=== PATIENT | male | born 1935 | race Caucasian/White ===

== ENCOUNTER 2016-10-03 17:29 | Inpatient (IN) | payer OTHER ==
[~2016-10-03] VITALS: Ht 172.7 cm; Wt 72.1 kg
[~2016-10-03 17:29] MED LIST: ASPIR 8181 M1 PO; ATORVASTATIN CA80 MG PO; Aspirin E.C. PO; CALCITRIOL0.25 MCG PO; CARVEDILOL12.5 MG PO; CARVEDILOL25 MG PO; CARVEDILOL6.25 MG PO; CEFTIN500 MG PO; FUROSEMIDE40 MG PO; HUMALOG100 UNIT/1 SC; IPRATR-ALBUTEROL3 ML IH; LANTUS 10100 UNITS/ SC; LANTUS 3 M100 UNITS1 SC; LEVEMIR FL100 UNITS/ SC; LEVOFLOXACIN750 MG PO; LEVOTHYROXINE25 MCG PO; NOVOLIN N100 UNITS/ SC; NOVOLOG PE100 UNITS/ SC; OMEPRAZOLE20 M2 PO; OMEPRAZOLE20 MG; PANTOPRAZOLE SO40 MG PO; ROPINIROLE HCL0.5 MG PO; ST. JOSEPH ASPI81 MG PO; TRADJENTA5 MG PO; VITAMIN D2000 UNIT PO; VITAMIN D22000 UNIT PO
[2016-10-03 17:52] LABS: BASE EXCESS -8.9 mEq/L (-3 to +3); BICARBONATE 15.5 mEq/L (22-26); CARBOXY HGB 1.9 % (0-5); PCO2 28 mm Hg (35-45); PO2 403 mm Hg (80-100); pH 7.35 (7.35-7.45)
[2016-10-03 17:53] LABS: COMMENTS - BLOOD GASES A+C+; DEVICE NRBM; FI02 100 %; O2 FLOW 20 L/MIN; SITE LR; TOTAL RESP RATE 24 resp/min
[2016-10-03 17:54] LABS: CREATININE 2.6 mg/dL (0.6-1.3); POTASSIUM 3.1 mEq/L (3.7-5.4)
[2016-10-03 17:55] LABS: HEMATOCRIT 34.9 % (38.0-50.0); MCH 26.9 PG (29.0-34.0); MCHC 32.1 G/DL (30.0-36.0); MCV 83.7 FL (86-99); MEAN PLAT.VOLUME 11.6 uM^3 (9.0-12.4); NRBC (%) 0.3 /100 WBC (0-0); PLATELET COUNT 120 K/uL (156-360); RBC DIS.WIDTH-SD 45.7 % (39-53); RED BLOOD COUNT 4.17 M/uL (4.00-5.50); WHITE BLOOD COUNT 9.6 K/uL (4.1-10.2)
[2016-10-03 18:06] LABS: AMYLASE 149 IU/L (1-118); CHLORIDE 101 mEq/L (99-109); POTASSIUM 3.2 mEq/L (3.7-5.4); SODIUM 139 mEq/L (136-147)
[2016-10-03 18:07] LABS: INTER. NORMALIZED RATIO 1.2; PROTHROMBIN TIME 12.1 (9.2-11.2); PTT 32.9 (25-32)
[2016-10-03 18:08] LABS: GLUCOSE 338 mg/dL (70-99)
[2016-10-03 18:09] LABS: ANION GAP 18 MEQ/L (2-14)
[2016-10-03 18:11] LABS: SERUM ETHYL ALCOHOL < 10 mg/dL
[2016-10-03 18:12] LABS: UREA NITROGEN (BUN) 44 mg/dL (9-23)
[2016-10-03 18:15] LABS: LIPASE 65 U/L (1.0-51.0)
[2016-10-03 18:17] LABS: TROP-I INTERPRETATION NEGATIVE; TROPONIN-I 0.27 ng/mL (0.0-0.30)
[2016-10-03 18:18] LABS: GFR ESTIMATE (CALCULATED) 21 mL/min/
[2016-10-03 18:43] LABS: ABS NEUTROPHIL COUNT 6.8; ANISOCYTOSIS 2+; ATYPICAL LYMPHOCYTE 6.4 %; BAND NEUTROPHILS 4.5 % (0-8.0); BURR CELLS 2+; EOSINOPHIL ABS CT 0; INSTRUMENT ABS NEUTROPHIL CT 4.7 K/uL; LYMPHOCYTES 18.2 % (15.0-45.0); MACROCYTES 1+; METAMYELOCYTES 3.6 %; MICROCYTOSIS 2+; MYELOCYTES 0.9 %; NUCLEATED RBC'S 1.8; OVALOCYTES 1+; POIKILOCYTOSIS 3+; SCHISTOCYTES 1+; SEG.NEUTROPHILS 66.4 % (46.0-76.0); SMUDGE CELLS 12.7
[2016-10-03 19:41] LABS: BICARBONATE 19.6 mEq/L (22-26); CARBOXY HGB 1.8 % (0-5); DEVICE 980; METHEMOGLOBIN 1.2 % (0-1.5); PCO2 38 mm Hg (35-45); PO2 125 mm Hg (80-100); SITE LR; pH 7.32 (7.35-7.45)
[2016-10-03 19:42] LABS: FI02 75 %; MECHANICAL RATE 20 resp/min; MODE AC; PEEP 5 CM/H20; TIDAL VOLUME 450 ML; TOTAL RESP RATE 20 resp/min
[2016-10-03 19:59] LABS: MAGNESIUM 2.4 mg/dL (1.3-2.7)
[2016-10-03 21:50] VITALS: BP 166/58
[2016-10-03 22:30] VITALS: BP 168/94
[2016-10-03 23:00] VITALS: BP 178/75
[2016-10-04] VITALS (10 sets, daily range): BP systolic 84–150; BP diastolic 38–105
[2016-10-04 00:11] LABS: METH RESISTANT S AUREUS PCR NEGATIVE (NEGATIVE)
[2016-10-04 00:17] LABS: PROBE CHECK PASS; SPECIMEN PROCESSING CONTROL PASS
[2016-10-04 00:18] LABS: CHLORIDE 109 mEq/L (99-109)
[2016-10-04 00:19] LABS: SODIUM 142 mEq/L (136-147)
[2016-10-04 00:21] LABS: GLUCOSE 195 mg/dL (70-99)
[2016-10-04 00:22] LABS: ANION GAP 17 MEQ/L (2-14); POTASSIUM 4.2 mEq/L (3.7-5.4)
[2016-10-04 00:23] LABS: TOTAL BILIRUBIN 1.4 mg/dL (0.0-1.0)
[2016-10-04 00:24] LABS: ALKALINE PHOSPHATASE 174 IU/L (3-129); GFR ESTIMATE (CALCULATED) 21 mL/min/
[2016-10-04 00:25] LABS: TROP-I INTERPRETATION POSITIVE; TROPONIN-I 9.09 ng/mL (0.0-0.30)
[2016-10-04 00:26] LABS: UREA NITROGEN (BUN) 47 mg/dL (9-23)
[2016-10-04 00:33] LABS: HEMATOCRIT 38.3 % (38.0-50.0); MCH 26.7 PG (29.0-34.0); MCHC 32.1 G/DL (30.0-36.0); MCV 83.1 FL (86-99); MEAN PLAT.VOLUME 11.6 uM^3 (9.0-12.4); RBC DIS.WIDTH-CV 15.3 % (11.8-14.6); RBC DIS.WIDTH-SD 46.5 % (39-53); RED BLOOD COUNT 4.61 M/uL (4.00-5.50)
[2016-10-04 00:36] LABS: PLATELET COUNT 172 K/uL (156-360); WHITE BLOOD COUNT 23.8 K/uL (4.1-10.2)
[2016-10-04 02:01] LABS: BASE EXCESS -5.4 mEq/L (-3 to +3); BICARBONATE 18.9 mEq/L (22-26); METHEMOGLOBIN 1.5 % (0-1.5); pH 7.38 (7.35-7.45)
[2016-10-04 02:12] LABS: PCO2 32 mm Hg (35-45); PO2 168 mm Hg (80-100)
[2016-10-04 02:13] LABS: COMMENTS - BLOOD GASES C+; DEVICE VENT; FI02 60 %; INSPIRATION TIME 0.8 seconds; MECHANICAL RATE 20 resp/min; MODE A/C VC+; PEEP 5 CM/H20; SITE RR ALINE; TIDAL VOLUME 450 ML; TOTAL RESP RATE 24 resp/min
[2016-10-04 04:24] LABS: HDL CHOLESTEROL 29 MG/DL (Desirable>=40); LDL CHOLESTEROL 41 mg/dL (Desirable<100); NON-HDL CHOLESTEROL 61 mg/dL (Desirable<160); SAMPLE HEMOLYSIS CHECK 0; SAMPLE ICTERIC CHECK 0; SAMPLE LIPEMIA CHECK 0; TOTAL CHOLESTEROL 90 mg/dL (Desirable<200); TRIGLYCERIDES 98 MG/DL (Normal: <150)
[2016-10-04 04:24] LABS: ADD MIUA? YES; BILIRUBIN NEGATIVE; BLOOD LARGE; COLOR YELLOW ((YELLOW)); GLUCOSE (STRIP) 150; KETONES NEGATIVE; LEUKOCYTES NEGATIVE; NITRITE NEGATIVE; PROTEIN (STRIP) >=500; SPECIFIC GRAVITY 1.009 (1.000-1.030); UROBILINOGEN 0.2 MG/DL (0.2-1.0)
[2016-10-04 04:42] LABS: AMPHETAMINES QUANT VALUE 0 NG/ML; BARBITUATES QUANT VALUE 0 NG/ML; BENZODIAZEPINES, URINE SCREEN POSITIVE (200 ng/mL); MARIJUANA QUANT VALUE 0 NG/ML; OPIATES QUANTITATIVE VALUE 0 NG/ML; PHENCYCLIDINE QUANT VALUE 0 NG/ML
[2016-10-04 04:51] LABS: BACTERIA RARE /HPF; CASTS NONE SEEN /LPF; CRYSTALS NONE SEEN; EPITHELIAL CELLS RARE /HPF; MUCUS NONE SEEN /LPF; RED BLOOD CELLS TNTC /HPF (0-5); UCUL ADDED? NO; WHITE BLOOD CELLS 0-5 /HPF (0-5)
[2016-10-04 05:29] LABS: BASE EXCESS -6.4 mEq/L (-3 to +3); BICARBONATE 17.9 mEq/L (22-26); CARBOXY HGB 1.9 % (0-5); COMMENTS - BLOOD GASES C+; DEVICE VENT; FI02 60 %; INSPIRATION TIME 0.8 seconds; MECHANICAL RATE 20 resp/min; METHEMOGLOBIN 1.5 % (0-1.5); MODE A/C VC+; PCO2 31 mm Hg (35-45); PEEP 5 CM/H20; PO2 187 mm Hg (80-100); SITE RR ALINE; TIDAL VOLUME 450 ML; TOTAL RESP RATE 25 resp/min; pH 7.37 (7.35-7.45)
[2016-10-04 05:52] LABS: EOSINOPHIL (%) 0.1 % (0-5); HEMATOCRIT 34.7 % (38.0-50.0); IMMATURE GRANULOCYTE (%) 0.6 % (0.0-0.7); IMMATURE GRANULOCYTE COUNT 0.1 K/uL; INSTRUMENT ABS NEUTROPHIL CT 16.2 K/uL; LYMPHOCYTE COUNT 0.9 K/uL (1.0-2.8); MCH 26.6 PG (29.0-34.0); MCHC 32.9 G/DL (30.0-36.0); MCV 80.9 FL (86-99); MEAN PLAT.VOLUME 11.7 uM^3 (9.0-12.4); MONOCYTE (%) 5.1 % (3-12); MONOCYTE COUNT 0.9 K/uL (0-0.8); NEUTROPHIL (%) 89.3 % (45-76); NEUTROPHIL COUNT 16.2 K/uL (1.8-6.4); PLATELET COUNT 143 K/uL (156-360); RBC DIS.WIDTH-CV 15.4 % (11.8-14.6); RED BLOOD COUNT 4.29 M/uL (4.00-5.50); WHITE BLOOD COUNT 18.1 K/uL (4.1-10.2)
[2016-10-04 06:15] LABS: ANION GAP 16 MEQ/L (2-14); CHLORIDE 105 MEQ/L (99-109); GFR ESTIMATE (CALCULATED) 20 mL/min/; GLUCOSE 173 mg/dL (70-99); POTASSIUM 4.3 MEQ/L (3.7-5.4); SAMPLE HEMOLYSIS CHECK 0; SAMPLE ICTERIC CHECK 0; SAMPLE LIPEMIA CHECK 0; SODIUM 138 MEQ/L (136-147); UREA NITROGEN (BUN) 51 mg/dL (9-23)
[2016-10-04 06:17] LABS: TROP-I INTERPRETATION POSITIVE; TROPONIN-I 13.31 ng/mL (0.0-0.30)
[2016-10-04 10:01] LABS: TROP-I INTERPRETATION POSITIVE
[2016-10-04 10:23] LABS: INTER. NORMALIZED RATIO 1.2; PROTHROMBIN TIME 12.7 (9.2-11.2)
[2016-10-04 16:10] LABS: EOSINOPHIL (%) 0 % (0-5); HEMATOCRIT 34.8 % (38.0-50.0); IMMATURE GRANULOCYTE (%) 0.5 % (0.0-0.7); IMMATURE GRANULOCYTE COUNT 0.1 K/uL; INSTRUMENT ABS NEUTROPHIL CT 16.3 K/uL; LYMPHOCYTE COUNT 1.6 K/uL (1.0-2.8); MCH 26.5 PG (29.0-34.0); MCHC 32.8 G/DL (30.0-36.0); MCV 80.9 FL (86-99); MEAN PLAT.VOLUME 12.2 uM^3 (9.0-12.4); MONOCYTE (%) 4.4 % (3-12); MONOCYTE COUNT 0.8 K/uL (0-0.8); NEUTROPHIL (%) 86.6 % (45-76); NEUTROPHIL COUNT 16.3 K/uL (1.8-6.4); PLATELET COUNT 157 K/uL (156-360); RBC DIS.WIDTH-CV 15.5 % (11.8-14.6); RBC DIS.WIDTH-SD 45.4 % (39-53); WHITE BLOOD COUNT 18.8 K/uL (4.1-10.2)
[2016-10-04 16:37] LABS: ANION GAP 20 MEQ/L (2-14); CHLORIDE 102 MEQ/L (99-109); GFR ESTIMATE (CALCULATED) 18 mL/min/; GLUCOSE 254 mg/dL (70-99); SAMPLE HEMOLYSIS CHECK 0; SAMPLE ICTERIC CHECK 0; SAMPLE LIPEMIA CHECK 0; SODIUM 134 MEQ/L (136-147); UREA NITROGEN (BUN) 59 mg/dL (9-23)
[2016-10-04 16:39] LABS: POTASSIUM 5.7 MEQ/L (3.7-5.4)
[2016-10-04 16:51] LABS: TROP-I INTERPRETATION POSITIVE
[2016-10-04 17:02] LABS: INTER. NORMALIZED RATIO 1.4; PROTHROMBIN TIME 14.8 (9.2-11.2)
[2016-10-04 17:20] LABS: TROPONIN-I 9.23 ng/mL (0.0-0.30)
[2016-10-04 17:33] LABS: BASE EXCESS -14.5 mEq/L (-3 to +3); CARBOXY HGB 1.8 % (0-5); METHEMOGLOBIN 1.7 % (0-1.5); pH 7.31 (7.35-7.45)
[2016-10-04 17:34] LABS: BICARBONATE 9.6 mEq/L (22-26); DEVICE VENT; FI02 50 %; INSPIRATION TIME 0.8 seconds; MECHANICAL RATE 20 resp/min; MODE ACVC+; PCO2 19 mm Hg (35-45); PEEP 5 CM/H20; PO2 167 mm Hg (80-100); SITE ALINE; TIDAL VOLUME 450 ML; TOTAL RESP RATE 35 resp/min
[2016-10-04 18:35] LABS: MAGNESIUM 1.8 mg/dl (1.3-2.7)
[2016-10-04 18:42] LABS: TROP-I INTERPRETATION POSITIVE; TROPONIN-I 8.47 ng/mL (0.0-0.30)
[2016-10-04 18:59] LABS: PTT > 150.0 (25-32)
[2016-10-04 23:42] LABS: EOSINOPHIL (%) 0 % (0-5); HEMATOCRIT 33.1 % (38.0-50.0); IMMATURE GRANULOCYTE (%) 0.4 % (0.0-0.7); IMMATURE GRANULOCYTE COUNT 0.1 K/uL; INSTRUMENT ABS NEUTROPHIL CT 14.7 K/uL; LYMPHOCYTE COUNT 0.9 K/uL (1.0-2.8); MCH 26.5 PG (29.0-34.0); MCHC 32.6 G/DL (30.0-36.0); MCV 81.3 FL (86-99); MEAN PLAT.VOLUME 12.7 uM^3 (9.0-12.4); MONOCYTE COUNT 0.7 K/uL (0-0.8); NEUTROPHIL (%) 90.3 % (45-76); NEUTROPHIL COUNT 14.7 K/uL (1.8-6.4); PLATELET COUNT 124 K/uL (156-360); RBC DIS.WIDTH-CV 15.3 % (11.8-14.6); RBC DIS.WIDTH-SD 45.4 % (39-53); RED BLOOD COUNT 4.07 M/uL (4.00-5.50); WHITE BLOOD COUNT 16.3 K/uL (4.1-10.2)
[2016-10-04 23:44] LABS: BASE EXCESS -14.3 mEq/L (-3 to +3); CARBOXY HGB 1.7 % (0-5); COMMENTS - BLOOD GASES C+; DEVICE VENTILATOR; FI02 40 %; INSPIRATION TIME 0.8 seconds; MECHANICAL RATE 20 resp/min; METHEMOGLOBIN 1.5 % (0-1.5); MODE A/C VC+; PCO2 24 mm Hg (35-45); PEEP 5 CM/H20; PO2 170 mm Hg (80-100); TIDAL VOLUME 450 ML; TOTAL RESP RATE 24 resp/min
[2016-10-04 23:45] LABS: pH 7.27 (7.35-7.45)
[2016-10-04 23:52] LABS: CHLORIDE 104 mEq/L (99-109); POTASSIUM 5.7 mEq/L (3.7-5.4); SODIUM 136 mEq/L (136-147)
[2016-10-04 23:54] LABS: GLUCOSE 213 mg/dL (70-99)
[2016-10-04 23:55] LABS: ANION GAP 24 MEQ/L (2-14)
[2016-10-04 23:57] LABS: INTER. NORMALIZED RATIO 1.7; PROTHROMBIN TIME 17.2 (9.2-11.2)
[2016-10-04 23:58] LABS: GFR ESTIMATE (CALCULATED) 16 mL/min/
[2016-10-04 23:59] LABS: UREA NITROGEN (BUN) 64 mg/dL (9-23)
[2016-10-05] VITALS: BP 92/44
[2016-10-05 00:04] LABS: MAGNESIUM 1.6 mg/dL (1.3-2.7)
[2016-10-05 00:20] LABS: TROP-I INTERPRETATION POSITIVE; TROPONIN-I 7.81 ng/mL (0.0-0.30)
[2016-10-05 00:21] LABS: PTT > 150.0 (25-32)
[2016-10-05 04:00] VITALS: BP 91/31
[2016-10-05 05:00] LABS: BASE EXCESS -7.1 mEq/L (-3 to +3); BICARBONATE 15.9 mEq/L (22-26); CARBOXY HGB 1.8 % (0-5); COMMENTS - BLOOD GASES C+; DEVICE VENTILATOR; FI02 30 %; METHEMOGLOBIN 1.2 % (0-1.5); PCO2 24 mm Hg (35-45); PO2 126 mm Hg (80-100); pH 7.43 (7.35-7.45)
[2016-10-05 05:01] LABS: INSPIRATION TIME 0.8 seconds; MECHANICAL RATE 20 resp/min; MODE A/C VC+; PEEP 5 CM/H20; TIDAL VOLUME 450 ML; TOTAL RESP RATE 22 resp/min
[2016-10-05 05:45] LABS: INTER. NORMALIZED RATIO 1.6; PROTHROMBIN TIME 16.8 (9.2-11.2)
[2016-10-05 06:02] LABS: PTT 58.6 (25-32)
[2016-10-05 06:41] LABS: ALKALINE PHOSPHATASE 118 IU/L (3-129); ANION GAP 20 MEQ/L (2-14); CHLORIDE 101 MEQ/L (99-109); GFR ESTIMATE (CALCULATED) 15 mL/min/; GLUCOSE 209 mg/dL (70-99); POTASSIUM 5.4 MEQ/L (3.7-5.4); SAMPLE HEMOLYSIS CHECK 0; SAMPLE ICTERIC CHECK 0; SAMPLE LIPEMIA CHECK 0; SODIUM 137 MEQ/L (136-147); TOTAL BILIRUBIN 2.5 MG/DL (0.0-1.0); UREA NITROGEN (BUN) 66 mg/dL (9-23)
[2016-10-05 06:47] LABS: MAGNESIUM 3.5 mg/dl (1.3-2.7)
[2016-10-05 06:56] LABS: EOSINOPHIL (%) 0.1 % (0-5); HEMATOCRIT 28.7 % (38.0-50.0); IMMATURE GRANULOCYTE (%) 0.4 % (0.0-0.7); IMMATURE GRANULOCYTE COUNT 0.1 K/uL; INSTRUMENT ABS NEUTROPHIL CT 9.6 K/uL; LYMPHOCYTE COUNT 1.2 K/uL (1.0-2.8); MCH 26.3 PG (29.0-34.0); MCHC 32.8 G/DL (30.0-36.0); MCV 80.4 FL (86-99); MEAN PLAT.VOLUME 12.8 uM^3 (9.0-12.4); MONOCYTE (%) 4.2 % (3-12); MONOCYTE COUNT 0.5 K/uL (0-0.8); NEUTROPHIL (%) 84.5 % (45-76); NEUTROPHIL COUNT 9.6 K/uL (1.8-6.4); NRBC (%) 0.2 /100 WBC (0-0); PLATELET COUNT 90 K/uL (156-360); RBC DIS.WIDTH-CV 15.4 % (11.8-14.6); RBC DIS.WIDTH-SD 44.6 % (39-53); RED BLOOD COUNT 3.57 M/uL (4.00-5.50)
[2016-10-05 07:17] LABS: WHITE BLOOD COUNT 11.3 K/uL (4.1-10.2)
[2016-10-05 09:00] VITALS: BP 102/47
[2016-10-05] MEDS ORDERED: ATORVASTATIN CA80 MG PO (09:23)
[2016-10-05] MEDS ORDERED: FUROSEMIDE40 MG PO (09:24)
[2016-10-05] MEDS ORDERED: LEVO-T50 MCG PO (09:24)
[2016-10-05] MEDS ORDERED: LANTUS 10100 UNITS/ SC ×2 (09:25→09:26)
[2016-10-05] MEDS ORDERED: CALCITRIOL0.25 MCG PO (09:25)
[2016-10-05 11:23] LABS: EOSINOPHIL (%) 0 % (0-5); HEMATOCRIT 29.4 % (38.0-50.0); IMMATURE GRANULOCYTE (%) 0.4 % (0.0-0.7); IMMATURE GRANULOCYTE COUNT 0.1 K/uL; INSTRUMENT ABS NEUTROPHIL CT 9.6 K/uL; LYMPHOCYTE COUNT 1.3 K/uL (1.0-2.8); MCH 26.4 PG (29.0-34.0); MCHC 33.3 G/DL (30.0-36.0); MCV 79.2 FL (86-99); MEAN PLAT.VOLUME 12.2 uM^3 (9.0-12.4); MONOCYTE (%) 3.8 % (3-12); MONOCYTE COUNT 0.4 K/uL (0-0.8); NEUTROPHIL (%) 84.5 % (45-76); NEUTROPHIL COUNT 9.6 K/uL (1.8-6.4); PLATELET COUNT 93 K/uL (156-360); RBC DIS.WIDTH-CV 15.6 % (11.8-14.6); RBC DIS.WIDTH-SD 44.7 % (39-53); RED BLOOD COUNT 3.71 M/uL (4.00-5.50); WHITE BLOOD COUNT 11.4 K/uL (4.1-10.2)
[2016-10-05 11:42] LABS: INTER. NORMALIZED RATIO 1.6; PROTHROMBIN TIME 16.9 (9.2-11.2); PTT 47.1 (25-32)
[2016-10-05 12:00] VITALS: BP 132/51
[2016-10-05 12:01] LABS: ANION GAP 20 MEQ/L (2-14); CHLORIDE 100 MEQ/L (99-109); GFR ESTIMATE (CALCULATED) 15 mL/min/; GLUCOSE 174 mg/dL (70-99); MAGNESIUM 3.1 mg/dl (1.3-2.7); POTASSIUM 4.9 MEQ/L (3.7-5.4); SAMPLE HEMOLYSIS CHECK 0; SAMPLE ICTERIC CHECK 0; SAMPLE LIPEMIA CHECK 0; SODIUM 137 MEQ/L (136-147); UREA NITROGEN (BUN) 68 mg/dL (9-23)
[2016-10-05 17:00] VITALS: BP 99/48
[2016-10-05 22:00] VITALS: BP 131/51
[2016-10-06 02:00] VITALS: BP 94/39
[2016-10-06 04:54] LABS: EOSINOPHIL (%) 0 % (0-5); HEMATOCRIT 27.9 % (38.0-50.0); IMMATURE GRANULOCYTE (%) 0.4 % (0.0-0.7); INSTRUMENT ABS NEUTROPHIL CT 6.8 K/uL; LYMPHOCYTE COUNT 0.6 K/uL (1.0-2.8); MCH 26.6 PG (29.0-34.0); MCHC 32.6 G/DL (30.0-36.0); MCV 81.6 FL (86-99); MEAN PLAT.VOLUME 12.3 uM^3 (9.0-12.4); MONOCYTE (%) 3.3 % (3-12); MONOCYTE COUNT 0.3 K/uL (0-0.8); NEUTROPHIL (%) 88.4 % (45-76); NEUTROPHIL COUNT 6.8 K/uL (1.8-6.4); NRBC (%) 0.3 /100 WBC (0-0); PLATELET COUNT 74 K/uL (156-360); RBC DIS.WIDTH-CV 15.6 % (11.8-14.6); RED BLOOD COUNT 3.42 M/uL (4.00-5.50); WHITE BLOOD COUNT 7.6 K/uL (4.1-10.2)
[2016-10-06 04:58] LABS: INTER. NORMALIZED RATIO 1.6; PTT 32.9 (25-32)
[2016-10-06 06:00] VITALS: BP 100/50
[2016-10-06 08:00] VITALS: BP 103/41
== END 2016-10-06 10:28 | DRG 208 ==
LOC: EME 17:29 → EDBD 17:29 → EME 17:29 → 4WEST 20:07 → EDBD 20:07 → EDOF 20:07 → 4WEST 21:48
PROVIDERS: Emergency Medicine; Internal Medicine; Internal Medicine Pulmonary Disease; Surgery Surgical Critical Care
DX: J96.01 Acute respiratory failure with hypoxia (principal); R57.0 Cardiogenic shock; I21.4 Non-ST elevation (NSTEMI) myocardial infarction; K72.91 Hepatic failure, unspecified with coma; G93.1 Anoxic brain damage, not elsewhere classified; I47.2 Ventricular tachycardia; I25.10 Atherosclerotic heart disease of native coronary artery without angina pectoris; E87.6 Hypokalemia; E87.2 Acidosis; Z66 Do not resuscitate; Z51.5 Encounter for palliative care; I27.2 Other secondary pulmonary hypertension; R68.0 Hypothermia, not associated with low environmental temperature; I13.0 Hypertensive heart and chronic kidney disease with heart failure and stage 1 through stage 4 chronic kidney disease, or unspecified chronic kidney disease; I50.9 Heart failure, unspecified; N18.9 Chronic kidney disease, unspecified; E11.22 Type 2 diabetes mellitus with diabetic chronic kidney disease; E78.5 Hyperlipidemia, unspecified; K21.9 Gastro-esophageal reflux disease without esophagitis; I25.5 Ischemic cardiomyopathy; J45.909 Unspecified asthma, uncomplicated; Z95.5 Presence of coronary angioplasty implant and graft; Z86.73 Personal history of transient ischemic attack (TIA), and cerebral infarction without residual deficits; Z87.891 Personal history of nicotine dependence
CPT/HCPCS: 36600; 36620; 70450; 71010; 80047; 80048; 80048 91; 80053; 80061; 80306 90; 81003; 82150; 82330; 82803; 83605; 83690; 83735; 83880; 84100; 84484; 85025; 85025 91; 85027; 85610; 85730; 86850; 86900; 86901; 87040; 87070; 87076; 87077; 87081; 87185; 87186; 87205; 87641; 87801; 93005; 94002; 94003; 94799; 99281; 99285; G0480; J0282; J0696; J1815; J1953; J2060; J2270; J2543; J2704; J3475; J3480; J7030; J7050; S0028